=== PATIENT | male | born 1990 ===

== ENCOUNTER 2019-09-05 18:18 | Emergency (ER) | payer SELFPAY | END 2019-09-05 20:23 | disposition home or self-care (01) | LOC: ERS 18:18 | DX: L03.116 Cellulitis of left lower limb (principal); E10.9 Type 1 diabetes mellitus without complications; F17.200 Nicotine dependence, unspecified, uncomplicated; Z79.4 Long term (current) use of insulin | CPT/HCPCS: 99282 ==